=== PATIENT | female | born 1950 | race Caucasian/White ===

== ENCOUNTER 2021-12-24 17:18 | Emergency (ER) | payer MEDICARE, OTHER ==
[~2021-12-24] VITALS: Ht 149.9 cm; Wt 80.7 kg
[2021-12-24 17:33] VITALS: BP_SYST 150
[2021-12-24] MEDS ORDERED: REPA2TAB12 PO (17:53)
[2021-12-24] MEDS ORDERED: AMLO5TAB4 PO (17:54)
[2021-12-24] MEDS ORDERED: METO50TA7 PO (17:54)
[2021-12-24] MEDS ORDERED: VALS80TA2 PO (17:55)
[2021-12-24] MEDS ORDERED: ASA81 PO (17:55)
[2021-12-24] MEDS ORDERED: CLOP75TA32 PO (17:56)
[2021-12-24] MEDS ORDERED: OMEG-158 PO (17:57)
[2021-12-24] MEDS ORDERED: KETOROLAC TROMETHAMINE 30 MG VIAL IM ONE (18:30)
[2021-12-24] MEDS ORDERED: HYDROcodone/ACETAMIN 10-325 MG TAB PO ONE (18:30)
[2021-12-24 19:36] LABS: CHLORIDE 104 mmol/L (98-107); SODIUM SERUM 141 mmol/L (136-145); UREA NITROGEN, BLOOD 18 mg/dL (8-21)
[2021-12-24 19:47] LABS: BASOPHILS % (AUTO) 0.5 % (0.0-2.0); EOSINOPHILS # (AUTO) 0.1 K/uL (0.0-0.4); EOSINOPHILS % (AUTO) 1.4 % (0.0-4.0); HEMATOCRIT 38.8 % (36-48); HEMOGLOBIN 13.2 g/dL (12.0-16.0); LYMPHOCYTES # (AUTO) 3.7 K/uL (1.0-5.5); LYMPHOCYTES % (AUTO) 36.9 % (20.5-51.5); MEAN CORPUSCULAR HEMOGLOBIN 32 pg (27-31); MEAN CORPUSCULAR HGB CONC 34 % (32-36); MEAN CORPUSCULAR VOLUME 94 fL (79.0-98.0); MONOCYTES # (AUTO) 0.6 K/uL (0.0-1.0); MONOCYTES % (AUTO) 6.2 % (1.7-9.3); NEUTROPHILS # (AUTO) 5.5 K/uL (1.8-7.7); PLATELET COUNT (AUTO) 291 K/uL (130-430); RED BLOOD CELL COUNT(AUTO) 4.15 MIL/uL (4.2-6.2); RED CELL DISTRIBUTION WIDTH 12.9 % (9.0-15.0); WHITE BLOOD COUNT (AUTO) 10.1 K/uL (4.8-10.8)
[2021-12-24 19:51] LABS: ANION GAP 8 (5-15); CALCIUM 9.9 mg/dL (8.4-11.0); CREATININE 0.66 mg/dL (0.55-1.30); GLUCOSE 133 mg/dL (70-99)
[2021-12-24 19:57] LABS: ALANINE AMINOTRANSFERASE 37 U/L (12-78); ALBUMIN 2.9 g/dL (3.4-4.8); ASPARTATE AMINOTRANSFERASE 30 U/L (10-37); C-REACTIVE PROTEIN QUANT 2.3 mg/dL (0-0.5); TOTAL BILIRUBIN 0.3 mg/dL (0.0-1.0)
[2021-12-24] MEDS ORDERED: HYDR-3917 PO (20:09)
[2021-12-24] MEDS ORDERED: IBUP-1969 PO (20:09)
[2021-12-24 21:02] LABS: ERYTHROCYTE SEDIMENTATION RATE 71 MM/HR (0-20)
[2021-12-26 09:41] VITALS: BP_SYST 120
== END 2021-12-24 20:47 | disposition home or self-care (01) ==
LOC: SED 17:18
DX: M54.12 Radiculopathy, cervical region (principal); M79.621 Pain in right upper arm; E11.9 Type 2 diabetes mellitus without complications; I10 Essential (primary) hypertension; Z88.1 Allergy status to other antibiotic agents; Z79.899 Other long term (current) drug therapy
CPT/HCPCS: 99285; 80053; 85025; 85651; 86140; 36415; 93005; 72040; J1885